=== PATIENT | male | born 1985 | race African-American/Black ===

== ENCOUNTER 2017-01-20 12:18 | Emergency (ER) | payer MEDICAID ==
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
[2017-01-20 13:39] VITALS: BP 162/99
== END 2017-01-20 13:38 | disposition home or self-care (01) ==
LOC: ER 12:18
DX: J06.9 Acute upper respiratory infection, unspecified (principal); R52 Pain, unspecified; R53.83 Other fatigue; R50.9 Fever, unspecified; F17.210 Nicotine dependence, cigarettes, uncomplicated
CPT/HCPCS: 87804; 99283

== ENCOUNTER 2017-02-15 10:18 | Emergency (ER) | payer MEDICAID ==
[2017-02-15 10:26] VITALS: BP 146/101
[2017-02-15] MEDS ORDERED: OXYCODONE HCL IR 5 MG TABLET PO ONE (10:44)
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
[2017-02-15] MEDS ORDERED: CLINDAMYCIN HCL 150 MG CAPSULE PO ONE (11:51)
== END 2017-02-15 12:10 | disposition home or self-care (01) ==
LOC: ER 10:18
PROC: 0H9FXZZ Drainage of Right Hand Skin, External Approach (ICD-10-PCS; principal; 2017-02-15)
DX: L02.512 Cutaneous abscess of left hand (principal); F17.210 Nicotine dependence, cigarettes, uncomplicated
CPT/HCPCS: 99283; 87070; 87205; 87075; 87077; 10060; J3490 ×2

== ENCOUNTER 2017-03-27 13:02 | Emergency (ER) | payer MEDICAID ==
[2017-03-27 13:10] VITALS: BP 154/94
[2017-03-27] MEDS ORDERED: ACETAMINOPHEN 325 MG TABLET PO ONE (13:42)
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
== END 2017-03-27 13:55 | disposition home or self-care (01) ==
LOC: ER 13:02
DX: L02.511 Cutaneous abscess of right hand (principal); F17.210 Nicotine dependence, cigarettes, uncomplicated; Z71.6 Tobacco abuse counseling; Z88.5 Allergy status to narcotic agent; Z88.8 Allergy status to other drugs, medicaments and biological substances; Z88.6 Allergy status to analgesic agent
CPT/HCPCS: 99283

== ENCOUNTER 2017-04-10 18:18 | Emergency (ER) | payer MEDICAID ==
--- NOTE | 2017-04-10 20:15 | RADIOLOGY REPORT (SQ) ---
EXAM DESCRIPTION: WRIST RIGHT 3 VIEWS COMPLETED DATE/TIME: 04/10/2017 8:07 pm REASON FOR STUDY: pain COMPARISON: None. NUMBER OF VIEWS: Three views. TECHNIQUE: AP, lateral, and oblique radiographic images acquired of the right wrist. LIMITATIONS: None. FINDINGS: MINERALIZATION: Normal. BONES: No acute fracture or dislocation. No worrisome bone lesions. Normal alignment. SOFT TISSUES: No soft tissue swelling. No foreign body. OTHER: No other significant finding. IMPRESSION: NEGATIVE STUDY OF THE RIGHT WRIST. NO RADIOGRAPHIC EVIDENCE OF ACUTE INJURY. TECHNICAL DOCUMENTATION: JOB ID: [id number] [employer] All Rights Reserved
[2017-04-10] MEDS ORDERED: HYDROCODONE/ACETAMINOPHEN 5-325 MG 6 TAB/DSPK PO PRN (21:12)
[2017-04-10] MEDS ORDERED: OXYCODONE-ACETAMINOPHEN 5-325 MG TABLET PO ONE ×2 (21:12→21:18)
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
[2017-04-10 22:31] VITALS: BP 149/102
== END 2017-04-10 22:18 | disposition home or self-care (01) ==
LOC: ER 18:18
PROC: 2W3CX1Z Immobilization of Right Lower Arm using Splint (ICD-10-PCS; principal; 2017-04-10)
DX: S63.501A Unspecified sprain of right wrist, initial encounter (principal); M25.531 Pain in right wrist; W18.30XA Fall on same level, unspecified, initial encounter; Y93.67 Activity, basketball; F17.200 Nicotine dependence, unspecified, uncomplicated
CPT/HCPCS: 99283

== ENCOUNTER 2017-04-14 08:37 | Emergency (ER) | payer MEDICAID ==
[2017-04-14 08:42] VITALS: BP 174/108
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
== END 2017-04-14 09:54 | disposition home or self-care (01) ==
LOC: ER 08:37
DX: S63.501A Unspecified sprain of right wrist, initial encounter (principal); W18.30XA Fall on same level, unspecified, initial encounter; Y93.67 Activity, basketball; Z88.6 Allergy status to analgesic agent
CPT/HCPCS: 99283; L3984

== ENCOUNTER 2017-10-12 10:22 | Emergency (ER) | payer MEDICAID ==
[2017-10-12] MEDS ORDERED: IBUPROFEN 600 MG TABLET PO ONE (11:55)
--- NOTE | 2017-10-12 12:30 | RADIOLOGY REPORT (SQ) ---
EXAM DESCRIPTION: CHEST PA/LAT COMPLETED DATE/TIME: 10/12/2017 12:19 pm REASON FOR STUDY: cough/congest COMPARISON: None. EXAM PARAMETERS: NUMBER OF VIEWS: two views TECHNIQUE: Digital Frontal and Lateral radiographic views of the chest acquired. RADIATION DOSE: NA LIMITATIONS: none FINDINGS: LUNGS AND PLEURA: No opacities, masses or pneumothorax. No pleural effusion. MEDIASTINUM AND HILAR STRUCTURES: No masses or contour abnormalities. HEART AND VASCULAR STRUCTURES: Heart normal size. No evidence for failure. BONES: No acute findings. HARDWARE: None in the chest. OTHER: No other significant finding. IMPRESSION: NO SIGNIFICANT RADIOGRAPHIC FINDING IN THE CHEST. TECHNICAL DOCUMENTATION: JOB ID: [id number] [employer]- All Rights Reserved
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
[2017-10-12 13:54] VITALS: BP 133/89
== END 2017-10-12 13:54 | disposition home or self-care (01) ==
LOC: ER 10:22
DX: J06.9 Acute upper respiratory infection, unspecified (principal); R05 Cough; R50.9 Fever, unspecified; R07.9 Chest pain, unspecified; R53.81 Other malaise; R06.02 Shortness of breath; F17.200 Nicotine dependence, unspecified, uncomplicated; Z88.5 Allergy status to narcotic agent; Z88.8 Allergy status to other drugs, medicaments and biological substances; Z88.6 Allergy status to analgesic agent
CPT/HCPCS: 99284; 87804; 71020; J3490

== ENCOUNTER 2017-10-21 14:28 | Emergency (ER) | payer MEDICAID ==
[2017-10-21 14:53] VITALS: BP 180/111
[2017-10-21] MEDS ORDERED: BUPIVACAINE HCL 0.75% INJ/PF (7.5 MG/1 ML) 10 ML SDV INJ ONE (15:25)
[2017-10-21] MEDS ORDERED: LIDOCAINE 2% VISCOUS SOLN 20 ML UDCUP PO ONE (15:25)
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
== END 2017-10-21 16:28 | disposition home or self-care (01) ==
LOC: ER 14:28
DX: K02.9 Dental caries, unspecified (principal); K05.10 Chronic gingivitis, plaque induced; K08.89 Other specified disorders of teeth and supporting structures; F17.200 Nicotine dependence, unspecified, uncomplicated
CPT/HCPCS: 99282; 64400; J3490 ×2